=== PATIENT | female | born 1985 | race African-American/Black ===

== ENCOUNTER 2019-03-19 06:55 | Emergency (ER) | payer BC ==
[2019-03-19] MEDS: IBUPROFEN 600 MG TAB PO (07:29)
== END 2019-03-19 08:22 | disposition home or self-care (01) ==
LOC: FTE 06:55
DX: S83.92XA Sprain of unspecified site of left knee, initial encounter (principal); W01.0XXA Fall on same level from slipping, tripping and stumbling without subsequent striking against object, initial encounter; Y92.9 Unspecified place or not applicable
CPT/HCPCS: 73562; 81025; 99283-25